=== PATIENT | male | born 1945 | race Native Hawaiian/Other Pacific Islander ===

== ENCOUNTER 2018-12-10 09:50 | Outpatient (CLI) | payer OTHER ==
[~2018-12-10 09:50] MED LIST: AMIT10TA21 PO; CRESTOR20 MG PO; LEVO0.0529 PO; LEVO0.0723 PO; LIPITOR40 MG PO; LOFIBRA160 MG OR; METF100038 OR; MOBIC7.5 M1 PO; PHEN100C15 PO; ROSU10TA PO; SINGULAIR10 MG PO; VALS80CA2 PO
== END 2018-12-10 22:37 | disposition home or self-care (01) ==
LOC: RAD 09:50
DX: M79.671 Pain in right foot (principal)

== ENCOUNTER 2021-05-05 10:15 | Outpatient (CLI) | payer OTHER | END 2021-05-05 19:36 | disposition home or self-care (01) | LOC: US 10:15 | PROVIDERS: ATTEND Nurse Practitioner | DX: R60.0 Localized edema (principal) ==

== ENCOUNTER 2021-06-07 13:02 | Outpatient (CLI) | payer OTHER | END 2021-06-07 19:36 | disposition home or self-care (01) | LOC: RAD 13:02 | PROVIDERS: ATTEND Physician Assistant | DX: M54.59 Other low back pain (principal); M25.552 Pain in left hip ==